=== PATIENT | female | born 2000 | race Two or more races ===

== ENCOUNTER 2019-03-02 11:52 | Inpatient (IN) | payer BC, OTHER ==
[~2019-03-02] VITALS: Ht 152.4 cm; Wt 76.7 kg
[2019-03-02 12:59] LABS: Basophils # (auto) 0.1 uL; Basophils % (auto) 0.7 % (0.0-2.0); Eosinophils # (auto) 0.1 uL; Eosinophils % (auto) 0.8 % (0.0-7.0); Hematocrit 41.1 % (36.0-46.0); Hemoglobin 13.7 g/dL (12.2-16.2); Lymphocytes # (auto) 2.3 uL; Lymphocytes % (auto) 21.3 % (10.0-50.0); Mean Corpuscular Hemoglobin 28.8 pg (28.0-32.0); Mean Corpuscular Hgb Conc. 33.4 g/dL (32.0-36.0); Mean Corpuscular Volume 86.2 fL (80.0-100.0); Monocytes # (auto) 0.9 uL; Monocytes % (auto) 7.9 % (0.0-12.0); Neutrophils # (auto) 7.6 uL; Neutrophils % (auto) 69.3 % (37.0-80.0); Nucleated Red Blood Cells % 0.1 %; Platelet Count (auto) 322 10^3/uL (140-450); Red Blood Cells 4.77 10^6/uL (4.0-5.20); Red Cell Distribution Width 14.9 % (11.8-14.3); White Blood Cell 10.9 10^3/uL (4.4-10.8)
[2019-03-02 13:31] LABS: Potassium 4.3 mmol/L (3.5-5.1)
[2019-03-02 13:36] LABS: Albumin 3.8 g/dL (3.4-5.0); BUN/Creatinine Ratio 17.2; Calcium 8.8 mg/dL (8.5-10.1); Total Protein 6.9 g/dL (6.4-8.2)
[2019-03-02] MEDS ORDERED: KETOROLAC TROMETH 30 MG/ML 1ML VIAL IV ONE (14:30)
[2019-03-02] MEDS ORDERED: METOCLOPRAMIDE HCL 5MG/ml INJ 2ml VIAL IV ONE (14:30)
[2019-03-02 15:16] LABS: Urine Bacteria MANY /hpf (None Seen); Urine Blood 1+ /uL (Negative); Urine Mucus FEW (None Seen); Urine Specific Gravity 1.013 (1.001-1.035); Urine WBC 151 /hpf (0 - 5)
[2019-03-02] MEDS ORDERED: KETOROLAC TROMETH 60MG/2ML VIAL IM ONE (16:45)
[2019-03-02] MEDS ORDERED: cefTRIAXone 1GM/50ML D5W 50 ML IV ONE ×2 (17:30→19:15)
[2019-03-02] MEDS ORDERED: MORPHINE SULF INJ 2 MG/ML SYRINGE 1ML IV ONE (17:30)
[2019-03-02] MEDS ORDERED: ONDANSETRON HCL 4 MG/2 ML VIAL IV ONE (17:30)
[2019-03-02] MEDS ORDERED: SODIUM CHLORIDE 0.9% 1,000 ML IV ONE (17:30)
[2019-03-02] MEDS ORDERED: PROMETHAZINE HCL 25 MG/ML 1ML IV PRN (19:15)
[2019-03-02] MEDS ORDERED: traMADol HCL 50 MG TAB PO PRN (19:15)
[2019-03-02] MEDS ORDERED: ACETAMINOPHEN 500 MG TAB PO PRN (19:15)
[2019-03-02] MEDS: SODIUM CHLORIDE 0.9% 1,000 ML IV SCH (19:35)
[2019-03-02] MEDS: FAMOTIDINE (10MG/ML) 2ML VL IV SCH (19:35)
[2019-03-02 21:00] VITALS: BP 107/44
[2019-03-02] MEDS: TEMAZEPAM 15 MG CAP PO PRN ×2 (23:28→23:32)
[2019-03-03] MEDS ORDERED: ACET-1156 PO (00:11)
[2019-03-03] MEDS: KETOROLAC TROMETH 30 MG/ML 1ML VIAL IV PRN ×3 (00:48→17:11)
[2019-03-03 05:00] VITALS: BP 102/60
[2019-03-03] MEDS: SODIUM CHLORIDE 0.9% 1,000 ML IV SCH ×2 (06:16→17:02)
--- NOTE | 2019-03-03 08:00 | NUR ---
PT TAKEN TO [facility] FOR [facility] SCAN. TRANSPORTED VIA WHEELCHAIR.
[2019-03-03 09:00] VITALS: BP 100/44
--- NOTE | 2019-03-03 09:16 | NUR ---
PT BACK FROM HIDA SCAN, NO S/S OF DISTRESS. CALL LIGHT WITHIN REACH. FAMILY AT BEDSIDE. WILL CONTINUE TO MONITOR.
[2019-03-03] MEDS: cefTRIAXone 1GM/50ML D5W 50 ML IV SCH (09:38)
[2019-03-03] MEDS: FAMOTIDINE (10MG/ML) 2ML VL IV SCH ×2 (09:38→21:08)
--- NOTE | 2019-03-03 09:40 | NUR ---
PT SEEN BY SURGEON TAMI.
[2019-03-03 13:00] VITALS: BP 107/71
[2019-03-03 17:00] VITALS: BP_SYST 111; BP_SYST 150; BP_DIAS 67; BP_DIAS 71
[2019-03-03 22:02] VITALS: BP 115/73
[2019-03-04] MEDS: SODIUM CHLORIDE 0.9% 1,000 ML IV SCH ×2 (01:30→09:45)
[2019-03-04 05:18] VITALS: BP 101/62
--- NOTE | 2019-03-04 06:20 | NUR ---
Tolerating reg diet. C/o right upper quad generalized pulling and tightness. Appears to have slept 6/8 during noc.
[2019-03-04 06:31] LABS: Basophils # (auto) 0.1 uL; Basophils % (auto) 1.3 % (0.0-2.0); Eosinophils # (auto) 0.1 uL; Eosinophils % (auto) 2.3 % (0.0-7.0); Hematocrit 34.7 % (36.0-46.0); Hemoglobin 11.9 g/dL (12.2-16.2); Lymphocytes # (auto) 2.7 uL; Lymphocytes % (auto) 46.7 % (10.0-50.0); Mean Corpuscular Hemoglobin 29.8 pg (28.0-32.0); Mean Corpuscular Hgb Conc. 34.3 g/dL (32.0-36.0); Mean Corpuscular Volume 86.9 fL (80.0-100.0); Monocytes # (auto) 0.7 uL; Monocytes % (auto) 11.3 % (0.0-12.0); Neutrophils # (auto) 2.2 uL; Neutrophils % (auto) 38.4 % (37.0-80.0); Nucleated Red Blood Cells % 0.1 %; Platelet Count (auto) 272 10^3/uL (140-450); Red Blood Cells 3.99 10^6/uL (4.0-5.20); White Blood Cell 5.8 10^3/uL (4.4-10.8)
[2019-03-04 06:38] LABS: Potassium 4.4 mmol/L (3.5-5.1)
[2019-03-04 06:43] LABS: BUN/Creatinine Ratio 12.2; Calcium 7.8 mg/dL (8.5-10.1)
--- NOTE | 2019-03-04 07:20 | NUR ---
PT AWAKE, ALERT, ORIENTEDx4. PT GUARDS RUQ UPON PALPATION, REPORTS FLANK PAIN THAT INCREASES WITH MOVEMENT. BOWEL SOUNDS ACTIVE TO ALL QUADRANTS. EFFORTLESS BREATHING ON ROOM AIR. BED LOCKED AND IN LOWEST POSITION, CALL LIGHT WITHIN REACH. WILL CONTINUE TO MONITOR.
[2019-03-04] MEDS: FAMOTIDINE (10MG/ML) 2ML VL IV SCH (07:34)
[2019-03-04 08:00] VITALS: BP 108/62
[2019-03-04] MEDS: cefTRIAXone 1GM/50ML D5W 50 ML IV SCH (09:44)
[2019-03-04] MEDS: KETOROLAC TROMETH 30 MG/ML 1ML VIAL IV PRN (09:44)
[2019-03-04 12:00] VITALS: BP 101/50
--- NOTE | 2019-03-04 12:40 | NUR ---
DR. PRABHAKAR IN TO SEE PT. PT IN AGREEMENT WITH PLAN OF CARE.
[2019-03-04 15:01] VITALS: BP 101/50
--- NOTE | 2019-03-04 15:50 | NUR ---
DISCHARGE INSTRUCTIONS PROVIDED TO PT. PT VERBALIZED UNDERSTANDING FOR PRESCRIPTION ORDERS AND FOLLOW UP APPOINTMENT WITH PCP AND SURGEON. EDUCATIONAL MATERIAL PROVIDED, ALL QUESTIONS AND CONCERNS ADDRESSED. IV CATHETER DC'D CATHETER INTACT, NO PHLEBITIS. PT AWAITING TRANSPORT.
--- NOTE | 2019-03-04 16:10 | NUR ---
PT AMBULATED OUT OF UNIT. ACCOMPANIED BY FAMILY.
== END 2019-03-04 16:10 | disposition home or self-care (01) | DRG 444 ==
LOC: ER 11:57 → OVERFLOW 11:58 → WEST WING 21:00
PROVIDERS: ADMIT Internal Medicine; ATTEND Internal Medicine
DX: K80.20 Calculus of gallbladder without cholecystitis without obstruction (principal); N17.0 Acute kidney failure with tubular necrosis; N10 Acute pyelonephritis; D63.8 Anemia in other chronic diseases classified elsewhere; E66.9 Obesity, unspecified; Z68.33 Body mass index [BMI] 33.0-33.9, adult; E83.51 Hypocalcemia; F12.90 Cannabis use, unspecified, uncomplicated; F17.210 Nicotine dependence, cigarettes, uncomplicated; N18.9 Chronic kidney disease, unspecified; Z82.49 Family history of ischemic heart disease and other diseases of the circulatory system; Z83.3 Family history of diabetes mellitus; Z96.659 Presence of unspecified artificial knee joint; Z87.442 Personal history of urinary calculi
CPT/HCPCS: 36415; 74176; 76705; 78226; 80048; 80053; 81001; 82150; 83690; 84702; 85025; 87086; 87088; 87186; 96361; 96365; 96375; G0378; J0696; J1885; J3490